=== PATIENT | male | born 1960 | race Caucasian/White ===

== ENCOUNTER 2019-01-06 00:08 | Emergency (ER) | payer SELFPAY ==
[~2019-01-06] VITALS: Ht 172.7 cm; Wt 77.1 kg
[2019-01-06] MEDS ORDERED: THIAMINE INJ 100 MG in SODIUM CHLORIDE 0.9% 1,000 ML IV ONE (02:00)
[2019-01-06] MEDS ORDERED: FOLIC ACID 1 MG, MULTIPLE VITAMIN 10 ML, MAGNESIUM SULF SDV 50% 8 MEQ, THIAMINE INJ 100... INJ SCH ×5 (03:45)
[2019-01-06] MEDS ORDERED: THIAMINE 100mg/ml INJ (200mg/2ml VIAL) ONE (03:52)
[2019-01-06] MEDS ORDERED: SODIUM CHLORIDE 0.9% 1,000 ML IV ONE (04:00)
[2019-01-06 04:28] LABS: Amphetamine Screen, Urine NEGATIVE (NEGATIVE); Barbiturate Scree,Urine NEGATIVE (NEGATIVE); Benzodiazephine Screen, Urine NEGATIVE (NEGATIVE); Cannabinoid Screen, Urine NEGATIVE (NEGATIVE); Cocaine Screen, Urine NEGATIVE (NEGATIVE); Opiate Scree,Urine NEGATIVE (NEGATIVE); Phencyclidine Screen, Urine NEGATIVE (NEGATIVE)
[2019-01-06 07:56] VITALS: BP 109/86
== END 2019-01-06 09:20 | disposition home or self-care (01) ==
LOC: EDBD 00:08 → ER 00:12
DX: S22.42XA Multiple fractures of ribs, left side, initial encounter for closed fracture (principal); K70.30 Alcoholic cirrhosis of liver without ascites; F10.229 Alcohol dependence with intoxication, unspecified; Y90.9 Presence of alcohol in blood, level not specified; I10 Essential (primary) hypertension; W01.0XXA Fall on same level from slipping, tripping and stumbling without subsequent striking against object, initial encounter; Y93.89 Activity, other specified; Y92.89 Other specified places as the place of occurrence of the external cause; Y99.8 Other external cause status
CPT/HCPCS: 36415; 70450; 71045; 71250; 74176; 80307; 80320; 93005; 96365; 99284; J3411; J7030

== ENCOUNTER 2023-05-08 14:25 | Emergency (ER) | payer OTHER ==
[~2023-05-08] VITALS: Ht 172.7 cm; Wt 82.0 kg
[2023-05-08 15:22] LABS: Basophils # (auto) 0 10 ^3/uL (0-0.2); Basophils % (auto) 0.3 % (0.0-2.0); Eosinophils # (auto) 0 10 ^3/uL (0-0.8); Eosinophils % (auto) 0.4 % (0.0-7.0); Hemoglobin 16.4 g/dL (13.5-17.5); Lymphocytes # (auto) 0.3 10 ^3/uL (0.4-5.4); Mean Corpuscular Hemoglobin 33.6 pg (28.0-32.0); Mean Corpuscular Hgb Conc. 33.4 g/dL (32.0-36.0); Mean Corpuscular Volume 100.7 fL (80.0-100.0); Monocytes # (auto) 0.7 10 ^3/uL (0-1.3); Neutrophils # (auto) 7.6 10 ^3/uL (1.6-8.6); Neutrophils % (auto) 87.3 % (37.0-80.0); Nucleated Red Blood Cells % 0.2 %; Red Blood Cells 4.86 10^6/uL (4.5-5.90); Red Cell Distribution Width 13.7 % (11.8-14.3); White Blood Cell 8.7 10^3/uL (4.4-10.8)
[2023-05-08 15:30] LABS: Chloride 100 mmol/L (98-107); Potassium 2.9 mmol/L (3.5-5.1); Sodium 137 mmol/L (136-145)
[2023-05-08 15:31] LABS: Anion Gap 16 (5-15); Calcium 9.9 mg/dL (8.5-10.1); Carbon Dioxide 21 mmol/L (20-30)
[2023-05-08] MEDS: LORazepam 2MG/ML-1ML VIAL IV ONE (15:32)
[2023-05-08 15:36] LABS: Blood Urea Nitrogen 11 mg/dL (9-23); Glucose 146 mg/dL (74-106)
[2023-05-08 15:37] LABS: Blood Alcohol 3.9 mg/dL (<10)
[2023-05-08] MEDS ORDERED: CHL10C PO (17:31)
[2023-05-08 23:30] VITALS: BP 138/87; PULSE 103; RESP 20; O2SAT 97
== END 2023-05-08 23:34 | disposition home or self-care (01) ==
LOC: EDBD 14:25 → ER 14:25
DX: F10.939 Alcohol use, unspecified with withdrawal, unspecified (principal); R56.9 Unspecified convulsions; I10 Essential (primary) hypertension; E78.5 Hyperlipidemia, unspecified; Z79.899 Other long term (current) drug therapy; Y90.0 Blood alcohol level of less than 20 mg/100 ml
CPT/HCPCS: 36415; 70450; 80048; 80320; 85025; 96374; 99285; J2060

== ENCOUNTER 2024-05-14 07:42 | Emergency (ER) | payer OTHER ==
[~2024-05-14] VITALS: Ht 170.2 cm; Wt 81.8 kg
[~2024-05-14 07:42] MED LIST: CHL10C PO
[2024-05-14 08:13] LABS: Urine Bacteria None Seen /hpf (None Seen)
[2024-05-14 08:16] LABS: Urine Blood Negative /uL (Negative); Urine Clarity Clear (Clear); Urine Color Colorless (Yellow); Urine Protein, UAD TRACE (Negative); Urine Specific Gravity 1.003 (1.001-1.035); Urine Squamous Epithelial Cell None Seen /hpf (<5); Urine Urobilinogen Normal (Negative); Urine pH 6.5 (5.0-9.0)
[2024-05-14 08:29] LABS: Amphetamine Screen, Urine Neg (NEGATIVE)
[2024-05-14 08:30] LABS: Barbiturate Scree,Urine Neg (NEGATIVE); Benzodiazephine Screen, Urine Neg (NEGATIVE); Cannabinoid Screen, Urine Neg (NEGATIVE); Cocaine Screen, Urine Neg (NEGATIVE); Opiate Scree,Urine Neg (NEGATIVE); Phencyclidine Screen, Urine Neg (NEGATIVE)
[2024-05-14] MEDS: SODIUM CHLORIDE 0.9% 1,000 ML IVB ONE (08:30)
--- NOTE | 2024-05-14 08:43 | ED.PDOC ---
Altered Mental Status HPI Comments 64M BIBA w/ prior Hx of Sz, High Lipids, and HTN which all may be associated to the c/c of ALOC secondary to ETOH. EMS informed the nurse who informed us that the pt's girlfriend called EMS due from her finding the pt down next to a bottle of Vodka. on scene, EMS gave the pt a neck brace and assumed that the pt was A/Ox2. When pt arrived on scene he was A/ox4 and said "I think I had a Sz". Pt notes that the last thing he remembers os drinking 12 beers today. Pt states that he drinks up to vodka and beer daily. Social Hx of Heavy alcohol use but denies tobacco and substance use. Denies chills, fever, N/V/D, SOB, CP Tongue trauma, HYLTON or other associated symptom's, modifiers, or recent injuries or sick contact at this time. Chief Complaint: ETOH Time Seen by MD: 08:15 Primary Care Provider: alejandra Reviewed Notes: Nurses Notes, E Commerce Developer Notes, Medications, Allergies Allergies: Coded Allergies: NO KNOWN ALLERGIES (Unverified , 01/06/19) Home Meds Active Scripts Chlordiazepoxide Hcl (Ni-1) (I (Librium) 10 Mg Cap, 10 MG PO BID for 7 Days, #14 CAP Prov:FRANCY RADER MD 05/08/23 Information Source: Patient, Emergency Med Personnel Mode of Arrival: EMS Severity: Moderate Timing: Minutes Duration: Since onset, Minutes Prehospital treatment: None Quality: Confusion History of: Seizure Associated Signs and Symptoms: Other (possible Sz) Past Medical History PAST MEDICAL HISTORY: High Lipids, HTN, Seizures Surgical History: Denies all surgeries Family History Family History: Reviewed,noncontributory to illness, Unknown Social History Smoker: Non-Smoker Alcohol: Heavy Drugs: Denies Drug Use Lives In: Home Constitutional: denies: chills, diaphoresis, fatigue, fever, malaise, sweats, weakness, others EENTM: denies: blurred vision, double vision, ear bleeding, ear discharge, ear drainage, ear pain, ear ringing, eye pain, eye redness, hearing loss, mouth pain, mouth swelling, nasal discharge, nose bleeding, nose congestion, nose pain, photophobia, tearing, throat pain, throat swelling, voice changes, others Respiratory: denies: cough, hemoptysis, orthopnea, SOB at rest, shortness of breath, SOB with excertion, stridor, wheezing, others Cardiovascular: denies: chest pain, dizzy spells, diaphoresis, Dyspnea on exertion, edema, irregular heart beat, left arm pain, lightheadedness, palpitations, PND, syncope, others Gastrointestinal: denies: abdomen distended, abdominal pain, blood streaked bowels, constipated, diarrhea, dysphagia, difficulty swallowing, hematemesis, m gabriel, nausea, poor appetite, poor fluid intake, rectal bleeding, rectal pain, vomiting, others Genitourinary: denies: burning, dysuria, flank pain, frequency, hematuria, incontinence, penile discharge, penile sore, pain, testicle pain, testicle swelling, urgency, others Neurological: reports: seizure; denies: dizziness, fainting, headache, left sided numbness, left sided weakness, numbness, paresthesia, pre-existing deficit, right sided numbness, right sided weakness, speech problems, tingling, tremors, weakness, others Musculoskeletal: reports: back pain; denies: gout, joint pain, joint swelling, muscle pain, muscle stiffness, neck pain, others Integumetry: denies: bruises, change in color, change in hair/nails, dryness, laceration, lesions, lumps, rash, wounds, others Allergic/Immunocompromised: denies: Difficulty Healing, Frequent Infections, Hives, Itching, others Hematologic/Lymphatic: denies: anemia, blood clots, easy bleeding, easy bruising, swollen glands, others Endocrine: denies: excessive hunger, excessive sweating, excessive thirst, excessive urination, flushing, intolerance to cold, intolerance to heat, unexplained weight gain, unexplained weight loss, others Psychiatric: denies: anxiety, bipolar disorder, depression, hopeless, panic disorder, schizophrenia, sleepless, suicidal, others All Other Systems: Reviewed and Negative Physical Exam General Appearance: Mild Distress, Normal HEENT: Normal ENT Inspection, PERRL/EOMI, Pharynx Normal, TMs Normal Neck: Full Range of Motion, Non-Tender, Normal, Normal Inspection Respiratory: Chest Non-Tender, Lungs Clear, No Accessory Muscle Use, No Respiratory Distress, Normal Breath Sounds Cardiovascular: No Edema, No JVD, No Murmur, No Gallop, Normal Peripheral Pulses, Regular Rate/Rhythm Breast Exam: Deferred Gastrointestinal: No Organomegaly, Non Tender, No Pulsatile Mass, Normal Bowel Sounds, Soft Genitalia: Deferred Pelvic: Deferred Rectal: Deferred Extremities: No calf tenderness, Normal capillary refill, Normal inspection, Normal range of motion, Non-tender, No pedal edema Musculoskeletal : Location: Bilateral Extremity Location: Back Apperance: Limited ROM, Tenderness: Moderate, Other (Chronic back pain from fracture of NS and osteomyelitis still under treatment) Neurologic: Alert, direct response consultant II-XII nml as Tested, Depressed Affect, No Motor Deficits, Normal Mood, No Sensory Deficits Cerebellar Function: Tremor Reflexes: Normal Skin: Dry, Normal Color, Warm Peripheral Pulses: 1+ carotid (R), 1+ carotid (L) Lymphatic: No Adenopathy EKG EKG : Pulse Rate (adult): 80 [place]: Normal Cardiac Rhythm: NSR Was a procedure done? Was a procedure done?: No Differential Diagnosis (ALOC) Differential Diagnosis: Dehydration, Hypoglycemia, Encephalopathy, Seizure, ETOH Intoxication X-Ray, Labs, Meds, VS Vital Signs Date Time Temp Pulse Resp B/P (MAP) Pulse Ox O2 Delivery O2 Flow Rate FiO2 05/14/24 16:50 77 16 124/82 (96) 96 05/14/24 11:44 92 19 106/63 (77) 95 05/14/24 11:39 92 19 95 Room Air* 0 21 05/14/24 10:09 93 16 145/85 (105) 98 05/14/24 08:47 80 05/14/24 08:41 80 05/14/24 08:01 97.6 84 18 183/96 (125) 98 Lab Test 05/14/24 16:33 05/14/24 08:46 05/14/24 08:10 Range/Units Plasma/Serum Blood Alcohol 290.1 H 449.7 *H <10 mg/dL White Blood Count 2.6 L 4.4-10.8 10^3/uL Red Blood Count 5.16 4.5-5.90 10^6/uL Hemoglobin 15.9 13.5-17.5 g/dL Hematocrit 47.3 41.0-53.0 % Mean Corpuscular Volume 91.6 80.0-100.0 fL Mean Corpuscular Hemoglobin 30.7 28.0-32.0 pg Mean Corpuscular Hemoglobin Concent 33.5 32.0-36.0 g/dL Red Cell Distribution Width 17.5 H 11.8-14.3 % Platelet Count 155 140-450 10^3/uL Mean Platelet Volume 7.7 6.9-10.8 fL Neutrophils (%) (Auto) 46.8 37.0-80.0 % Lymphocytes (%) (Auto) 35.4 10.0-50.0 % Monocytes (%) (Auto) 16.1 H 0.0-12.0 % Eosinophils (%) (Auto) 1.2 0.0-7.0 % Basophils (%) (Auto) 0.5 0.0-2.0 % Neutrophils # (Auto) 1.2 L 1.6-8.6 10 ^3/uL Lymphocytes # (Auto) 0.9 0.4-5.4 10 ^3/uL Monocytes # (Auto) 0.4 0-1.3 10 ^3/uL Eosinophils # (Auto) 0 0-0.8 10 ^3/uL Basophils # (Auto) 0 0-0.2 10 ^3/uL Nucleated Red Blood Cells 0.2 % Sodium Level 135 L 136-145 mmol/L Potassium Level 3.5 3.5-5.1 mmol/L Chloride Level 97 L 98-107 mmol/L Carbon Dioxide Level 26 20-31 mmol/L Anion Gap 12 5-15 Blood Urea Nitrogen < 5 L 9-23 mg/dL Creatinine 0.67 L 0.700-1.30 mg/dL Glomerular Filtration Rate Calc 105 >90 mL/min BUN/Creatinine Ratio 7.5 L 10.0-20.0 Serum Glucose 104 74-106 mg/dL Calcium Level 9.5 8.7-10.4 mg/dL Magnesium Level 2.0 1.6-2.6 mg/dL Total Bilirubin 0.8 0.2-1.0 mg/dL Aspartate Amino Transferase (AST) 144 H 13-40 U/L Alanine Aminotransferase (ALT) 90 H 7-40 U/L Alkaline Phosphatase 143 H 46-116 U/L Total Protein 7.5 5.7-8.2 g/dL Albumin 4.3 3.2-4.8 g/dL Urine Color Colorless Yellow Urine Clarity Clear Clear Urine pH 6.5 5.0-9.0 Urine Specific [place] 1.003 1.001-1.035 Urine Protein Trace H Negative Urine Ketones Negative Negative Urine Blood Negative Negative /uL Urine Nitrite Negative Negative Urine Bilirubin Negative Negative Urine Urobilinogen Normal Negative mg/dL Urine Leukocyte Esterase Negative Negative /uL Urine RBC <1 0 - 3 /hpf Urine Microscopic WBC 0-3 /HPF Urine Squamous Epithelial Cells None seen <5 /hpf Urine Bacteria None seen None Seen /hpf Urine Glucose Normal Normal mg/dL Urine Opiates Screen Neg NEGATIVE Urine Fentanyl Screen Neg NEGATIVE Urine Barbiturates Screen Neg NEGATIVE Urine Phencyclidine Screen Neg NEGATIVE Urine Amphetamines Screen Neg NEGATIVE Urine Benzodiazepines Screen Neg NEGATIVE Urine Cocaine Screen Neg NEGATIVE Urine Cannabinoids Screen Neg NEGATIVE Current Medications Medications (Trade) Dose Ordered Sig/Jovanny Route Start Time Stop Time Status Last Admin Lorazepam (Ativan Inj) 2 mg ONCE ONCE IV 05/14/24 08:30 05/14/24 08:31 DC 05/14/24 11:48 Sodium Chloride 1,000 ml @ 1,000 mls/hr Q1H ONCE IVB 05/14/24 08:30 05/14/24 09:29 DC 05/14/24 08:30 Folic Acid 1 mg/ Magnesium Sulfate 8 meq/ Multivitamins 10 ml/Thiamine HCl 100 mg/Sodium Chloride 1,013.2 ml @ 126.247 mls/hr ONCE ONCE INJ 05/14/24 09:00 05/14/24 17:01 DC 05/14/24 09:52 Levetiracetam 100 ml @ 400 mls/hr ONCE ONCE IV 05/14/24 13:00 05/14/24 13:14 DC 05/14/24 13:00 X-Ray, Labs, Meds, VS Comment Course in the emergency department eventful Patient found on floor with a bottle of liquor intoxicated and possibly had a seizure Chest x-ray normal EKG shows normal sinus rhythm at 80 CBC 2.5 with a 46.8% neutrophils and normal H&H Urine negative UDS negative ETOH 449.7 and 290 CMP sodium 1-135 liver enzymes elevated Patient will be hydrated and observed and sedated Patient is feeling better and will be discharged home to follow up with her PCP this patient needs detoxification Time of 1ST Reevaluation: 08:45 Reevaluation 1ST: Unchanged Time of 2ND Reevaluation: 12:53 Reevaluation 2ND: Unchanged Patient Education/Counseling: Diagnosis, Treatment, Prognosis Family Education/Counseling: No Family Present Departure 1 Departure Time of Disposition: 17:56 Impression: Primary Impression: Alcohol abuse Additional Impressions: Alcohol withdrawal seizure Qualified Codes: F10.930 - Alcohol use, unspecified with withdrawal, uncomplicated; R56.9 - Unspecified convulsions Chronic back pain Qualified Codes: M54.41 - Lumbago with sciatica, right side; G89.29 - Other chronic pain Disposition: 01 HOME / SELF CARE / HOMELESS Condition: Fair Additional Instructions: Push fluids stop drinking and follow up with your PCP and an appy also you need detoxification e-Prescriptions Chlordiazepoxide Hcl (Librium) 25 Mg Cp 25 MG GT TID for 5 Days, #15 CAP Prov: JOSE A NICOLE MD 05/14/24 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 Electronically submitted by Arsenio Desai ([email or web address]). JOSE A NICOLE MD May 14, 2024 08:43
--- NOTE | 2024-05-14 08:49 | DVH ---
CHEST RADIOGRAPH Indication: aloc Technique: Single frontal view of the chest was obtained COMPARISON: None FINDINGS: Lines and Tubes: None Lungs: Clear Pleura: No effusion. No pneumothorax. Cardiomediastinal contours: Unremarkable Bones: Unremarkable IMPRESSION: No acute disease.
[2024-05-14] MEDS ORDERED: FOLIC ACID 1 MG, MAGNESIUM SULF SDV 50% 8 MEQ, MULTIPLE VITAMIN 10 ML, THIAMINE INJ 100... INJ SCH ×3 (09:00→18:00)
[2024-05-14 09:04] LABS: Basophils # (auto) 0 10 ^3/uL (0-0.2); Basophils % (auto) 0.5 % (0.0-2.0); Eosinophils # (auto) 0 10 ^3/uL (0-0.8); Eosinophils % (auto) 1.2 % (0.0-7.0); Hematocrit 47.3 % (41.0-53.0); Hemoglobin 15.9 g/dL (13.5-17.5); Lymphocytes # (auto) 0.9 10 ^3/uL (0.4-5.4); Lymphocytes % (auto) 35.4 % (10.0-50.0); Mean Corpuscular Hemoglobin 30.7 pg (28.0-32.0); Mean Corpuscular Hgb Conc. 33.5 g/dL (32.0-36.0); Mean Corpuscular Volume 91.6 fL (80.0-100.0); Monocytes # (auto) 0.4 10 ^3/uL (0-1.3); Monocytes % (auto) 16.1 % (0.0-12.0); Neutrophils # (auto) 1.2 10 ^3/uL (1.6-8.6); Neutrophils % (auto) 46.8 % (37.0-80.0); Nucleated Red Blood Cells % 0.2 %; Platelet Count (auto) 155 10^3/uL (140-450); Red Blood Cells 5.16 10^6/uL (4.5-5.90); Red Cell Distribution Width 17.5 % (11.8-14.3); White Blood Cell 2.6 10^3/uL (4.4-10.8)
[2024-05-14 09:33] LABS: Albumin 4.3 g/dL (3.2-4.8); Anion Gap 12 (5-15); Calcium 9.5 mg/dL (8.7-10.4); Carbon Dioxide 26 mmol/L (20-31); Glucose 104 mg/dL (74-106)
[2024-05-14 09:34] LABS: Bilirubin, Total 0.8 mg/dL (0.2-1.0); Total Protein 7.5 g/dL (5.7-8.2)
[2024-05-14 09:38] LABS: Alanine Aminotransferase 90 U/L (7-40); Alkaline Phosphatase 143 U/L (46-116); Aspartate Aminotransferase 144 U/L (13-40); BUN/Creatinine Ratio 7.5 (10.0-20.0); Blood Urea Nitrogen < 5 mg/dL (9-23); Chloride 97 mmol/L (98-107); Potassium 3.5 mmol/L (3.5-5.1); Sodium 135 mmol/L (136-145)
[2024-05-14] MEDS: FOLIC ACID 1 MG, MAGNESIUM SULF SDV 50% 8 MEQ, MULTIPLE VITAMIN 10 ML, THIAMINE INJ 100... INJ ONE (09:52)
[2024-05-14 10:00] LABS: Blood Alcohol 449.7 mg/dL (<10)
[2024-05-14 11:39] VITALS: PULSE 92; RESP 19; O2SAT 95
[2024-05-14] MEDS: LORazepam 2MG/ML-1ML VIAL IV ONE (11:48)
[2024-05-14] MEDS: levETIRAcetam 1000 mg/100ml 100 ML IV ONE (13:00)
[2024-05-14] MEDS ORDERED: CHL25C GT (18:00)
[2024-05-14] MEDS ORDERED: FOLIC ACID 1 MG, MAGNESIUM SULF SDV 50% 8 MEQ, MULTIPLE VITAMIN 10 ML, THIAMINE INJ 100... INJ ONE (18:00)
[2024-05-14 19:30] VITALS: PULSE 78; RESP 14; TEMP 97.9; O2SAT 94
[2024-05-14 21:00] VITALS: BP 124/71; PULSE 87; RESP 16; O2SAT 94
--- NOTE | 2024-05-15 06:56 | ECG ---
[facility] Test Date: 2024-05-14 Test Time: 08:41:22 Pat Name: KRYSTINA SILVA Department: er Room: Gender: M [employer] Operator: hossein : 1960 Requested By: JOSE A NICOLE Order Number: [id number] Reading MD: Emery Barreto Measurements Intervals [place] Rate: 80 P: 75 [place]: 187 QRS: 62 QRSD: 106 T: 29 QT: 408 QTc: 471 Interpretive Statements Sinus rhythm Electronically Signed On 05-16-2024 8:24:12 PST by Emery Barreto Please click the below link to view image of tracing.
[2024-05-15] MEDS ORDERED: FOLIC ACID 1 MG, MAGNESIUM SULF SDV 50% 8 MEQ, MULTIPLE VITAMIN 10 ML, THIAMINE INJ 100... INJ SCH (18:00)
== END 2024-05-14 21:48 | disposition home or self-care (01) ==
LOC: ER 07:42 → EDBD 07:42 → ER 21:48
DX: F10.10 Alcohol abuse, uncomplicated (principal); G89.29 Other chronic pain; R56.9 Unspecified convulsions; I10 Essential (primary) hypertension; M54.9 Dorsalgia, unspecified; E78.5 Hyperlipidemia, unspecified; Y90.9 Presence of alcohol in blood, level not specified
CPT/HCPCS: 36415; 71045; 80053; 80307; 80320; 81001; 82947; 83735; 85025; 93005; 96361; 96365; 96366; 96375; 99285; J1953; J2060; J3411; J3475; J7030; 96367